=== PATIENT | female | born 1955 | race Caucasian/White ===

== ENCOUNTER 2017-03-02 21:41 | Inpatient (IN) | payer OTHER ==
[~2017-03-02] VITALS: Ht 165.1 cm; Wt 72.3 kg
[~2017-03-02 21:41] MED LIST: ATOR40TA68 PO; FAMO10TA84 PO; OLME20TA20 PO
[2017-03-02] MEDS ORDERED: SOD CHLORIDE 0.9% 1,000 ML IV STA (22:10)
[2017-03-02] MEDS ORDERED: ASPIRIN 325 MG TAB PO STA (22:10)
[2017-03-02 22:36] LABS: BASOPHIL # 0.1 10^3/ul (0.0-0.1); BASOPHILS % 0.4 % (0.0-2.0); HEMATOCRIT 44.9 % (37.0-47.0); HEMOGLOBIN 14.7 g/dl (12.0-16.0); LYMPHOCYTES # 3.2 10^3/ul (0.8-2.9); LYMPHOCYTES % 16.8 % (15.0-51.0); MEAN CORPUSCULAR HEMOGLOBIN 29.2 pg (29.0-33.0); MEAN CORPUSCULAR HGB CONC 32.7 g/dl (32.0-37.0); MEAN CORPUSCULAR VOLUME 89.3 fl (82.0-101.0); MONOCYTE # 1.1 10^3/ul (0.3-0.9); MONOCYTES % 5.8 % (0.0-11.0); NEUTROPHIL # 14.5 10^3/ul (1.6-7.5); NEUTROPHILS % 76.5 % (39.0-77.0); RED BLOOD COUNT 5.03 10^6/ul (4.20-5.40); RED CELL DISTRIBUTION WIDTH 12.7 % (11.5-14.5); WHITE BLOOD COUNT 18.9 10^3/ul (4.8-10.8)
[2017-03-02 22:47] LABS: BARBITURATES Negative (NEGATIVE); BENZODIAZEPINES Negative (NEGATIVE); CANNABINOIDS Negative (NEGATIVE); COCAINE Negative (NEGATIVE); OPIATES Negative (NEGATIVE)
--- NOTE | 2017-03-02 22:47 | ERA ---
ER Documentation Chief Complaint Date/Time DATE: 03/02/17 TIME: 22:45 Chief Complaint COFFEE GROUND VOMITING; ALOC HPI This is a 61-year-old female who was last seen normal a few hours ago. Apparently the patient does not recall any events of today or yesterday. The daughter is here of the patient's best friend who is on scene. Called and spoke with this woman. She states that she was with the patient all afternoon and they were having a normal day. 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 She says she did not eat much for lunch but then they both had a bowl of dark cherries together. Soon after this the patient states she did not feel well and went to the bathroom and vomited. At that point the patient seemed to be confused and did not really recognize her. She stated that the patient did not recall going to work this morning and did not recall the events of yesterday either. The patient is denying any headache no slurred speech visual change no focal weakness or numbness. ROS All systems reviewed and are negative except as per history of present illness. Medications Home Meds Reported Medications Famotidine* (Famotidine*) 10 Mg Tablet, 10 MG PO DAILY, #30 TAB 05/08/16 Atorvastatin* (Atorvastatin*) 40 Mg Tablet, 10 MG PO QHS, #30 TAB 05/08/16 Olmesartan Medoxomil (Benicar) 20 Mg Tablet, 20 MG PO DAILY, #30 TAB 05/08/16 Allergies Allergies: Coded Allergies: No Known Drug Allergies (Verified Allergy, Unknown, 05/08/16) PMhx/Soc History of Surgery: Yes (HYSTERECTOMY, OOPHORECTOMY X2, TONSILLECTOMY) Anesthesia Reaction: No Hx Neurological Disorder: No Hx Respiratory Disorders: No Hx Cardiac Disorders: Yes (HTN) Hx Psychiatric Problems: No Hx Miscellaneous Medical Probl: Yes (PANCREATIC STONE PER PT. ) Hx Alcohol Use: No Hx Substance Use: No Hx Tobacco Use: No Smoking Status: Never smoker FmHx Family History: No coronary disease Physical Exam Vitals Vital Signs Date Time Temp Pulse Resp B/P Pulse Ox O2 Delivery O2 Flow Rate FiO2 03/02/17 21:58 84 18 109/62 100 Room Air 03/02/17 21:49 98.7 94 19 123/58 100 Physical Exam Const: Well-developed, well-nourished Head: Atraumatic, normocephalic Eyes: Normal Conjunctiva, PERRLA, EOMI, normal sclera, no nystagmus ENT: Normal External Ears, Nose and Mouth, moist mucus membranes. Neck: Full range of motion. No meningismus, no lymphadenopathy. Resp: Clear to auscultation bilaterally, no wheezing, rhonchi, rales Cardio: Regular rate and rhythm, no murmurs, S1 S2 present Abd: Soft, non tender x 4, non distended. Normal bowel sounds, no guarding or rebound, no pulsitile abdominal masses or bruits Skin: No petechiae or rashes, no ecchymosis , no maculopapular rash Back: No midline or flank tenderness Ext: No cyanosis, or edema, FROM x 4, normal inspection, neurovascularly intact x 4 Neur: Awake and alert, STR 5/5 x 4, sensation intact x 4, no focal findings, cerebellum intact, the patient is amnestic to the past few days events Psych: Normal Mood and Affect Result Diagram: 03/02/17219903/02/172199 Results 24 hrs Laboratory Tests Test 03/02/17 22:00 White Blood Count 18.910^3/ul Red Blood Count 5.0310^6/ul Hemoglobin 14.7g/dl Hematocrit 44.9% Mean Corpuscular Volume 89.3fl Mean Corpuscular Hemoglobin 29.2pg Mean Corpuscular Hemoglobin Concent 32.7g/dl Red Cell Distribution Width 12.7% Platelet Count 55012^3/UL Mean Platelet Volume 9.0fl Neutrophils % 76.5% Lymphocytes % 16.8% Monocytes % 5.8% Eosinophils % 0.0% Basophils % 0.4% Nucleated Red Blood Cells % 0.0/100WBC Neutrophils # 14.510^3/ul Lymphocytes # 3.210^3/ul Monocytes # 1.110^3/ul Eosinophils # 0.010^3/ul Basophils # 0.110^3/ul Nucleated Red Blood Cells # 0.010^3/ul Prothrombin Time 12.1Sec Prothrombin Time Ratio 0.9 INR International Normalized Ratio 0.90 Activated Partial Thromboplast Time 29.4Sec Sodium Level 146mmol/L Potassium Level 4.6mmol/L Chloride Level 99mmol/L Carbon Dioxide Level 30mmol/L Anion Gap 22 Blood Urea Nitrogen 11mg/dl Creatinine 0.71mg/dl Glucose Level 123mg/dl Calcium Level 10.6mg/dl Total Bilirubin 0.4mg/dl Direct Bilirubin 0.00mg/dl Indirect Bilirubin 0.4mg/dl Aspartate Amino Transf (AST/SGOT) 50IU/L Alanine Aminotransferase (ALT/SGPT) 68IU/L Alkaline Phosphatase 109IU/L Troponin I < 0.012ng/ml Total Protein 9.3g/dl Albumin 5.4g/dl Globulin 3.90g/dl Albumin/Globulin Ratio 1.38 Urine Opiates Screen Negative Urine Barbiturates Negative Urine Amphetamines Screen Negative Urine Benzodiazepines Screen Negative Urine Cocaine Screen Negative Urine Cannabinoids Negative Current Medications Medications (Trade) Dose Ordered Sig/Junior Route PRN Reason Start Time Stop Time Status Last Admin Dose Admin Sodium Chloride (NS) 1,000 ml @ 1,000 mls/hr Q1H STAT IV 03/02/17 22:10 03/02/17 23:09 DC 03/02/17 22:32 Aspirin 325 mg 325 mg ONCE STAT PO 03/02/17 22:10 03/02/17 22:11 DC 03/02/17 22:32 Piperacillin Sod/ Tazobactam Sod (Zosyn 3.375gm/ 100 ml (Pmx)) 100 ml @ 200 mls/hr ONCE STAT IVPB 03/02/17 23:22 03/02/17 23:51 Procedures/MDM PROCEDURE: CT brain without contrast CLINICAL INDICATION: Altered mental status. Possible stroke TECHNIQUE: A CT of the brain was performed utilizing axial sections from the skull base through the vertex without contrast. Sagittal and coronal images were also reformatted. The exam CTDIvol = 45.01 mGy and DLP = 720.23 mGy-cm. COMPARISON: None available FINDINGS: No acute intracranial hemorrhage is identified. There is no mass effect or midline shift. No extra-axial fluid collection is seen. The ventricles and sulci are larger in size and configuration for the patient's provided age of 61 years consistent with advanced generalized atrophy. The density of the brain is within normal limits. Graham-white differentiation is preserved with no findings to suggest an acute ischemic infarct. The fourth ventricle is midline and there is no density alteration within the ishan or cerebellum. The osseous structures are unremarkable. The mastoid air cells and visualized paranasal sinuses are clear. RPTAT:HJJR IMPRESSION: Advanced atrophy for the patient's provided age with no evidence of acute intracranial abnormality or findings to explain the patient's provided history. Carl Guthrie Physician Date Time Electronically viewed and signed by Physician Maria D on 03/02/2017 23:14 JR/ CC: HERMAN LUCAS DO PROCEDURE: XR Chest. CLINICAL INDICATION: Chest pain. Altered mental status TECHNIQUE: Portable AP view of the chest was obtained. COMPARISON: None. FINDINGS: The cardiomediastinal silhouette is within normal limits. The lungs are clear. There is no evidence for pleural effusion, pneumothorax or pulmonary vascular congestion. The osseous structures are intact with no evidence for acute abnormality. RPTAT:HJJR IMPRESSION: No evidence for acute intrathoracic pathology. Physician Maria D Date Time Electronically viewed and signed by Physician Maria D on 03/02/2017 23:13 JR/ CC: HERMAN LUCAS DO Patient has elevated white blood count and this is likely due to stress reaction /demargination. The patient is very nontoxic appearing is in no fever no stiff neck no signs of meningitis. Patient has advanced atrophy for age however acute amnesia could be due to an infarct. She is not a TPA candidate due to her symptomatology and unknown onset. We will admit her to panel. Did get blood and urine cultures. Patient had just eaten a bunch of dark cherries and vomited them up that is what is causing the dark vomit in my opinion not coffee-ground emesis She will need further workup including MRI and observation EKG: Rate/Rhythm: Normal sinus rhythm with right axis deviation QRS, ST, QT: NORMAL MT, QRS, QT] Impression: NORMAL EKG Departure Diagnosis: Primary Impression: Amnesia Additional Impression: Altered level of consciousness Condition: Stable HERMAN LUCAS DO Mar 02, 2017 22:47
[2017-03-02 22:48] LABS: INR 0.9; PARTIAL THROMBOPLASTIN TIME 29.4 Sec (25.0-35.0); PROTIME 12.1 Sec (12.2-14.2); PT RATIO 0.9
[2017-03-02 22:50] LABS: ALANINE AMINOTRANSFERASE 68 IU/L (13-69); ALBUMIN 5.4 g/dl (3.3-4.9); ALBUMIN/GLOBULIN RATIO 1.38; ALKALINE PHOSPHATASE 109 IU/L (42-121); ANION GAP 22 (8-16); ASPARTATE AMINO TRANSFERASE 50 IU/L (15-46); BILIRUBIN,INDIRECT 0.4 mg/dl (0-1.1); BILIRUBIN,TOTAL 0.4 mg/dl (0.2-1.3); BLOOD UREA NITROGEN 11 mg/dl (7-20); CALCIUM 10.6 mg/dl (8.4-10.2); CARBON DIOXIDE 30 mmol/L (21-31); CHLORIDE 99 mmol/L (97-110); CREATININE 0.71 mg/dl (0.44-1.00); GLUCOSE 123 mg/dl (70-220); POTASSIUM 4.6 mmol/L (3.5-5.1); SODIUM 146 mmol/L (135-144); TOTAL PROTEIN 9.3 g/dl (6.1-8.1)
[2017-03-02 22:55] LABS: PLATELET COUNT 280 10^3/UL (140-415); POSITIVE DIFF @See below
[2017-03-02 23:01] LABS: TROPONIN-I < 0.012 ng/ml (0.00-0.12)
--- NOTE | 2017-03-02 23:13 | RADRPT ---
PROCEDURE: XR Chest. CLINICAL INDICATION: Chest pain. Altered mental status TECHNIQUE: Portable AP view of the chest was obtained. COMPARISON: None. FINDINGS: The cardiomediastinal silhouette is within normal limits. The lungs are clear. There is no evidenc e for pleural effusion, pneumothorax or pulmonary vascular congestion. The osseous structures are i ntact with no evidence for acute abnormality. RPTAT:HJJR IMPRESSION: No evidence for acute intrathoracic pathology. Physician Maria D Date Time Electronically viewed and signed by Physician Maria D on 03/02/2017 23:13 JR/
--- NOTE | 2017-03-02 23:15 | RADRPT ---
PROCEDURE: CT brain without contrast CLINICAL INDICATION: Altered mental status. Possible stroke TECHNIQUE: A CT of the brain was performed utilizing axial sections from the skull base through th e vertex without contrast. Sagittal and coronal images were also reformatted. The exam CTDIvol = 45. 01 mGy and DLP = 720.23 mGy-cm. COMPARISON: None available FINDINGS: No acute intracranial hemorrhage is identified. There is no mass effect or midline shift. No extra -axial fluid collection is seen. The ventricles and sulci are larger in size and configuration for the patient's provided age of 61 years consistent with advanced generalized atrophy. The density of the brain is within normal limits. Graham-white differentiation is preserved with no findings to sug gest an acute ischemic infarct. The fourth ventricle is midline and there is no density alteration within the ishan or cerebellum. The osseous structures are unremarkable. The mastoid air cells and visualized paranasal sinuses are clear. RPTAT:HJJR IMPRESSION: Advanced atrophy for the patient's provided age with no evidence of acute intracranial abnormality o r findings to explain the patient's provided history. Physician Maria D Date Time Electronically viewed and signed by Physician Maria D on 03/02/2017 23:14 /
[2017-03-02] MEDS ORDERED: PIPER-TAZO 3.375 GM IV (PMX) 100 ML IVPB STA (23:22)
[2017-03-02] MEDS ORDERED: SOD CHLORIDE 0.9% 1,000 ML IV SCH (23:39)
[2017-03-03] VITALS (12 sets, daily range): BP systolic 106–114; BP diastolic 52–67; PULSE 55–112; RESP 16–18; Ht 165.1 cm; Wt 72.3 kg
[2017-03-03] MEDS ORDERED: ACETAMINOPHEN 325 MG TAB PO PRN
[2017-03-03] MEDS ORDERED: ONDANSETRON 4 MG INJ IV PRN ×2 (01:30)
[2017-03-03] MEDS: ENOXAPARIN 40 MG/0.4 ML SYG SC SCH ×3 (01:55→09:51)
[2017-03-03] MEDS: CEFTRIAXONE 1 GM/50 ML (PMX) 50 ML IVPB SCH (06:10)
--- NOTE | 2017-03-03 07:49 | HP ---
Date/Time of Note Date/Time of Note DATE: 03/03/17 TIME: 07:40 Assessment/Plan Lines/Catheters IV Catheter Type (from Rust): Saline Lock Assessment/Plan Assessment/Plan 1. Amnesia: Unknown etiology. -Head CT shows advanced atrophy for the patient's age otherwise no other acute findings -We will obtain MRI of the brain in place a neurology consult. 2. Leukocytosis: Likely stress-induced -Urinalysis negative for UTI and a chest x-ray also negative for pneumonia -We will follow up on the urine culture and blood culture results 3. History of hypertension: Blood pressure within goal -Continue home medication 4. History of dyslipidemia -Continue statin HPI/ROS Admit Date/Time Admit Date/Time Mar 02, 2017 at 23:40 Hx of Present Illness This is a 61-year-old female with a history of hypertension and dyslipidemia who presented to the emergency department for evaluation of memory loss. Patient stated that 2 days ago, she went to a movie with her mom where she ate popcorn. She said that popcorn made her bloated and she had a generalized feeling of unwell. 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 Later on in the afternoon she ate some cherries and that this also caused her some discomfort. Shortly after she vomited and after that patient does not remember what happened until she found herself in the ER. She denied similar symptoms in the past. She also denied any focal neurological deficits, facial droop blurry vision or seizure-like activity. 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 Patient still does not remember how she got to the hospital but other than that she remembers everything and does not have any other memory deficits. Patient denied recent head trauma. She also denied alcohol or illicit drug use. . PMH/Family/Social Social History Smoking Status: Never smoker Exam/Review of Systems Vital Signs Vitals Vital Signs Date Time Temp Pulse Resp B/P Pulse Ox O2 Delivery O2 Flow Rate FiO2 03/03/17 04:18 65 03/03/17 04:07 98.6 18 114/57 96 03/03/17 01:03 Room Air Intake and Output 03/02/17 03/02/17 03/03/17 14:59 22:59 06:59 Intake Total 300 ml Balance 300 ml Labs Result Diagram: 03/02/17219903/02/172199 Medications Medications Current Medications Aspirin (Aspirin) 81 mg DAILY PO ; Start 03/03/17 at 09:00 Atorvastatin Calcium (Lipitor) 40 mg HS PO ; Start 03/03/17 at 21:00 Ondansetron HCl (Zofran Inj) 4 mg Q6H PRN IV NAUSEA AND/OR VOMITING; Start at 01:30 Enoxaparin Sodium 40 mg 40 mg DAILY SC Last administered on 03/03/17 01:55; Admin Dose 40 MG; Start 03/03/17 at 01:30 Ceftriaxone Sodium (Rocephin) 50 ml @ 100 mls/hr Q24H IVPB Last administered on 03/03/17 06:10; Admin Dose 100 MLS/HR; Start 03/03/17 at 04:30 KAREN KELLER MD Mar 03, 2017 07:49
[2017-03-03 08:13] LABS: BASOPHILS % 0.3 % (0.0-2.0); HEMATOCRIT 38.8 % (37.0-47.0); HEMOGLOBIN 12.7 g/dl (12.0-16.0); LYMPHOCYTES # 2.2 10^3/ul (0.8-2.9); LYMPHOCYTES % 18.9 % (15.0-51.0); MEAN CORPUSCULAR HEMOGLOBIN 29.4 pg (29.0-33.0); MEAN CORPUSCULAR HGB CONC 32.7 g/dl (32.0-37.0); MEAN CORPUSCULAR VOLUME 89.8 fl (82.0-101.0); MONOCYTE # 0.8 10^3/ul (0.3-0.9); NEUTROPHIL # 8.6 10^3/ul (1.6-7.5); NEUTROPHILS % 73.5 % (39.0-77.0); RED BLOOD COUNT 4.32 10^6/ul (4.20-5.40); RED CELL DISTRIBUTION WIDTH 12.8 % (11.5-14.5); WHITE BLOOD COUNT 11.7 10^3/ul (4.8-10.8)
[2017-03-03 08:15] LABS: POSITIVE DIFF @See below
[2017-03-03 08:31] LABS: CALCIUM 9.6 mg/dl (8.4-10.2); CHOL/HDL RATIO 3.3 RATIO; CREATININE 0.61 mg/dl (0.44-1.00); PHOSPHORUS 3.7 mg/dl (2.5-4.9); POTASSIUM 4.5 mmol/L (3.5-5.1)
[2017-03-03 08:42] LABS: PLATELET COUNT 152 10^3/UL (140-415)
[2017-03-03] MEDS: ASPIRIN 81 MG TAB PO SCH (09:56)
[2017-03-03 12:19] LABS: ADD UMIC YES; UR ASCORBIC ACID 40 mg/dL (NEGATIVE); UR BACTERIA FEW /HPF (NONE SEEN); UR BILIRUBIN (Dip) NEGATIVE (NEGATIVE); UR BLOOD (Dip) NEGATIVE (NEGATIVE); UR CLARITY TURBID (CLEAR); UR COLOR AMBER (YELLOW); UR GLUCOSE (Dip) NEGATIVE (NEGATIVE); UR KETONES (Dip) TRACE mg/dL (NEGATIVE); UR LEUKOCYTE ESTERASE (Dip) TRACE Leu/ul (NEGATIVE); UR MUCUS MANY /HPF (NONE SEEN); UR NITRITE (Dip) NEGATIVE (NEGATIVE); UR RBC 8 /HPF (0-5); UR TOTAL PROTEIN (Dip) 2+ mg/dl (NEGATIVE); UR UROBILINOGEN (Dip) NEGATIVE (NEGATIVE)
[2017-03-03] MEDS: LORAZEPAM 1 MG TAB PO SCH (15:27)
--- NOTE | 2017-03-03 17:25 | RADRPT ---
PROCEDURE: MRI Brain without contrast. CLINICAL INDICATION: Acute amnesia TECHNIQUE: Multiplanar MRI of the brain without contrast was performed on a 3.0 T scanner with the following sequences obtained: T1-weighted, T2-weighted/FLAIR, diffusion weighted (with ADC map), GR E. COMPARISON: CT brain 03/02/2017 FINDINGS: No acute/recent ischemic infarction or intracranial hemorrhage / blood degradation products are iden tified. No extra-axial fluid collection is seen. There is no mass effect. No midline shift is identified. The ventricles and sulci are mildly enlarged, compatible with volume loss. A couple of minimal areas of increased T2-weighted FLAIR signal intensity are visualized in the deep white matter, which are nonspecific, but may reflect reflecting chronic small vessel ischemic guadalupe e. Flow voids are identified in the proximal intracranial arteries and dural sinuses suggesting patency . A focal signal void is identified adjacent to the left internal carotid artery medially at the pa raclinoid region abutting the left anterolateral margin of the sella, measuring approximately 6 mm. Partly empty sella is noted. The mastoid air cells and paranasal sinuses are grossly clear. IMPRESSION: 1. No evidence of acute intracranial pathology. 2. Mild volume loss, with minimal nonspecific white matter changes possibly reflecting chronic smal l vessel ischemic changes. 3. Approximately 6 mm signal void adjacent to the paraclinoid left ICA. Aneurysm is not excluded. Further evaluation with MRA or CTA of the brain is recommended. RPTAT: EE .Bhaskar Pate MD, MD Date Time Electronically viewed and signed by .Bhaskar Pate MD, MD on 03/03/2017 17:25 .O/
--- NOTE | 2017-03-03 18:27 | CONS ---
Date/Time of Note Date/Time of Note DATE: 03/03/17 TIME: 18:23 Assessment/Plan Assessment/Plan Chief Complaint/Hosp Course 61 yo female with transient amnesia now back to baseline, mild leukocytosis. CTH showed atrophy advanced for age, pending MRI Brain for further eval. check TSH, B12, infectious workup MRI Brain w/o contrast. will follow Problems: Consultation Date/Type/Reason Admit Date/Time Mar 02, 2017 at 23:40 Date of Consultation: Mar 03, 2017 Type of Consultation: Neurology Reason for Consultation transient amnesia Referring Provider: VERONICA TAYLOR of Present Illness 61 year old female with a history of HTN, HLD presented to the ED for evaluation of memory loss. Two days ago she went to watch a movie with her mother, she recalls eating popcorn and enjoying the movie [place], but reports feeling unwell and bloated from the popcorn. The following day she had some discomfort and vomiting. She was unable to recall events from the day apparently she gave her dog a shower cannot recall that. She does admit to a similar episode in the past in [place] after food poisoning. She denies any memory issues. CTH showed atrophy advanced for age. Social History Smoking Status: Never smoker Exam/Review of Systems Vital Signs Vitals Vital Signs Date Time Temp Pulse Resp B/P Pulse Ox O2 Delivery O2 Flow Rate FiO2 03/03/17 16:05 66 03/03/17 11:45 98.4 18 114/64 98 03/03/17 01:03 Room Air Intake and Output 03/02/17 03/02/17 03/03/17 15:00 23:00 07:00 Intake Total 300 ml Balance 300 ml Exam Constitutional: alert, oriented, well developed Psych: no complaints Neurological: ALLIGATOR HUNTER II-XII intact, DTR's symmetric, nl mental status, nl speech, nl strength Results Result Diagram: 03/03/17 0727 03/03/17 0722 Results 24 hrs Laboratory Tests Test 03/02/17 22:00 03/03/17 07:22 03/03/17 07:27 White Blood Count 18.9 H 11.7 #H Red Blood Count 5.03 4.32 Hemoglobin 14.7 12.7 Hematocrit 44.9 38.8 Mean Corpuscular Volume 89.3 89.8 Mean Corpuscular Hemoglobin 29.2 29.4 Mean Corpuscular Hemoglobin Concent 32.7 32.7 Red Cell Distribution Width 12.7 12.8 Platelet Count 280 152 # Mean Platelet Volume 9.0 11.0 #H Neutrophils % 76.5 73.5 Lymphocytes % 16.8 18.9 Monocytes % 5.8 7.0 Eosinophils % 0.0 0.0 Basophils % 0.4 0.3 Nucleated Red Blood Cells % 0.0 0.0 Neutrophils # 14.5 H 8.6 H Lymphocytes # 3.2 H 2.2 Monocytes # 1.1 H 0.8 Eosinophils # 0.0 0.0 Basophils # 0.1 0.0 Nucleated Red Blood Cells # 0.0 0.0 Prothrombin Time 12.1 L Prothrombin Time Ratio 0.9 INR International Normalized Ratio 0.90 Activated Partial Thromboplast Time 29.4 Urine Color GARRET Urine Clarity TURBID A Urine pH 5.0 Urine Specific Jameson 1.030 Urine Ketones TRACE A Urine Nitrite NEGATIVE Urine Bilirubin NEGATIVE Urine Urobilinogen NEGATIVE Urine Leukocyte Esterase TRACE A Urine Microscopic RBC 8 H Urine Microscopic WBC 3 Urine Calcium Oxalate Crystals FEW A Urine Bacteria FEW A Urine Mucus MANY A Urine Hemoglobin NEGATIVE Urine Glucose NEGATIVE Urine Total Protein 2+ H Sodium Level 146 H 145 H Potassium Level 4.6 4.5 Chloride Level 99 103 Carbon Dioxide Level 30 29 Anion Gap 22 H 18 H Blood Urea Nitrogen 11 10 Creatinine 0.71 0.61 Glucose Level 123 102 Calcium Level 10.6 H 9.6 Total Bilirubin 0.4 Direct Bilirubin 0.00 Indirect Bilirubin 0.4 Aspartate Amino Transf (AST/SGOT) 50 H Alanine Aminotransferase (ALT/SGPT) 68 Alkaline Phosphatase 109 Troponin I < 0.012 < 0.012 Total Protein 9.3 H Albumin 5.4 H Globulin 3.90 H Albumin/Globulin Ratio 1.38 Urine Opiates Screen Negative Urine Barbiturates Negative Urine Amphetamines Screen Negative Urine Benzodiazepines Screen Negative Urine Cocaine Screen Negative Urine Cannabinoids Negative Phosphorus Level 3.7 Magnesium Level 2.0 Triglycerides Level 91 Cholesterol Level 177 LDL Cholesterol, Calculated 106 HDL Cholesterol 53 Cholesterol/HDL Ratio 3.3 Hemoglobin A1c 6.1 H Medications Medications Current Medications Aspirin (Aspirin) 81 mg DAILY PO Last administered on 03/03/17t 09:56; Admin Dose 81 MG; Start 03/03/17 at 09:00 Atorvastatin Calcium (Lipitor) 40 mg HS PO ; Start 03/03/17 at 21:00 Ondansetron HCl (Zofran Inj) 4 mg Q6H PRN IV NAUSEA AND/OR VOMITING; Start at 01:30 Enoxaparin Sodium 40 mg 40 mg DAILY SC Last administered on 03/03/17 01:55; Admin Dose 40 MG; Start 03/03/17 at 01:30 Ceftriaxone Sodium (Rocephin) 50 ml @ 100 mls/hr Q24H IVPB Last administered on 03/03/17 06:10; Admin Dose 100 MLS/HR; Start 03/03/17 at 04:30 Lorazepam (Ativan) 1 mg ONCE PO Last administered on 03/03/17 15:27; Admin Dose 1 MG; Start 03/03/17 at 15:30; Stop 03/04/17 at 16:00 DONTE LYNCH MD Mar 03, 2017 18:27
[2017-03-03] MEDS: ATORVASTATIN 40 MG TAB PO SCH (20:53)
[2017-03-04] VITALS (12 sets, daily range): BP systolic 100–130; BP diastolic 52–66; PULSE 56–67; RESP 16–20
[2017-03-04] MEDS: CEFTRIAXONE 1 GM/50 ML (PMX) 50 ML IVPB SCH (04:00)
[2017-03-04 07:55] LABS: CALCIUM 9.5 mg/dl (8.4-10.2); CREATININE 0.68 mg/dl (0.44-1.00); POTASSIUM 3.9 mmol/L (3.5-5.1)
[2017-03-04 08:21] LABS: THYROID STIMULATING HORMONE 2.14 MIU/L (0.465-4.680)
[2017-03-04] MEDS: ASPIRIN 81 MG TAB PO SCH (08:28)
[2017-03-04] MEDS: LOSARTAN 25 MG TAB PO SCH (08:28)
[2017-03-04] MEDS: ENOXAPARIN 40 MG/0.4 ML SYG SC SCH (08:30)
[2017-03-04 10:17] LABS: BASOPHILS % 0.5 % (0.0-2.0); HEMATOCRIT 38.4 % (37.0-47.0); HEMOGLOBIN 12.6 g/dl (12.0-16.0); LYMPHOCYTES # 1.9 10^3/ul (0.8-2.9); LYMPHOCYTES % 24.6 % (15.0-51.0); MEAN CORPUSCULAR HEMOGLOBIN 29.5 pg (29.0-33.0); MEAN CORPUSCULAR HGB CONC 32.8 g/dl (32.0-37.0); MEAN CORPUSCULAR VOLUME 89.9 fl (82.0-101.0); MEAN PLATELET VOLUME 12.1 fl (7.4-10.4); MONOCYTE # 0.6 10^3/ul (0.3-0.9); MONOCYTES % 7.7 % (0.0-11.0); NEUTROPHIL # 5.2 10^3/ul (1.6-7.5); NEUTROPHILS % 66.9 % (39.0-77.0); RED BLOOD COUNT 4.27 10^6/ul (4.20-5.40); RED CELL DISTRIBUTION WIDTH 12.8 % (11.5-14.5); WHITE BLOOD COUNT 7.8 10^3/ul (4.8-10.8)
[2017-03-04 10:19] LABS: PLATELET COUNT 192 10^3/UL (140-415); POSITIVE DIFF @See below
--- NOTE | 2017-03-04 12:19 | CONS ---
Date/Time of Note Date/Time of Note DATE: 03/04/17 TIME: 12:15 Consult Date/Type/Reason Admit Date/Time Mar 02, 2017 at 23:40 Initial Consult Date 03/03/17 Type of Consultation: Neurology Reason for Consultation transient amnesia Ordering Provider: VERONICA TAYLOR Subjective no overnight issues patient is comfortable with no complaints MRI showed a 6 mm signal void adjacent to the paraclinoid left ICA. Aneurysm is not excluded. Objective Vital Signs Date Time Temp Pulse Resp B/P Pulse Ox O2 Delivery O2 Flow Rate FiO2 03/04/17 11:43 98.3 61 18 103/57 100 03/03/17 01:03 Room Air Intake and Output 03/03/17 03/03/17 03/04/17 15:00 23:00 07:00 Intake Total 530 ml Balance 530 ml Exam Constitutional: alert, oriented, well developed Psych: no complaints Neurological: CRANE HOIST OR LIFT OPERATOR II-XII intact, DTR's symmetric, nl mental status, nl speech, nl strength Results/Medications Result Diagram: 03/04/17 0942 03/04/17 0711 Results 24 hrs Laboratory Tests Test 03/04/17 07:11 03/04/17 09:42 Sodium Level 143 Potassium Level 3.9 Chloride Level 105 Carbon Dioxide Level 24 Anion Gap 18 H Blood Urea Nitrogen 11 Creatinine 0.68 Glucose Level 90 Calcium Level 9.5 Vitamin B12 Level 805 Thyroid Stimulating Hormone (TSH) 2.140 White Blood Count 7.8 # Red Blood Count 4.27 Hemoglobin 12.6 Hematocrit 38.4 Mean Corpuscular Volume 89.9 Mean Corpuscular Hemoglobin 29.5 Mean Corpuscular Hemoglobin Concent 32.8 Red Cell Distribution Width 12.8 Platelet Count 192 # Mean Platelet Volume 12.1 H Neutrophils % 66.9 Lymphocytes % 24.6 Monocytes % 7.7 Eosinophils % 0.0 Basophils % 0.5 Nucleated Red Blood Cells % 0.0 Neutrophils # 5.2 Lymphocytes # 1.9 Monocytes # 0.6 Eosinophils # 0.0 Basophils # 0.0 Nucleated Red Blood Cells # 0.0 Medications Current Medications Aspirin (Aspirin) 81 mg DAILY PO Last administered on 03/04/17 08:28; Admin Dose 81 MG; Start 03/03/17 at 09:00 Atorvastatin Calcium (Lipitor) 40 mg HS PO Last administered on 7/23/17at 20:53 ; Admin Dose 40 MG; Start 03/03/17 at 21:00 Ondansetron HCl (Zofran Inj) 4 mg Q6H PRN IV NAUSEA AND/OR VOMITING; Start at 01:30 Enoxaparin Sodium 40 mg 40 mg DAILY SC Last administered on 03/04/17 08:30; Admin Dose 40 MG; Start 03/03/17 at 01:30 Ceftriaxone Sodium (Rocephin) 50 ml @ 100 mls/hr Q24H IVPB Last administered on 03/04/17 04:00; Admin Dose 100 MLS/HR; Start 03/03/17 at 04:30 Lorazepam (Ativan) 1 mg ONCE PO Last administered on 03/03/17 15:27; Admin Dose 1 MG; Start 03/03/17 at 15:30; Stop 03/04/17 at 16:00 Losartan Potassium (Cozaar) 25 mg DAILY PO Last administered on 03/04/17 08:28 ; Admin Dose 25 MG; Start 03/04/17 at 09:00 Assessment/Plan Chief Complaint/Hosp Course 61 yo female with transient amnesia now back to baseline, mild leukocytosis. MRI showed signal void paraclinoid left ICA possible 6 mm aneurysm suggested further imaging. Recommendations: unclear episode of transient amnesia, possibly underlying cognitive issues may be followed up as outpatient for further cognitive testing will recommend CT Angiogram Head with contrast to further evaluate aneurysm, MRI studies often overestimate size of aneurysm maintain normotensive blood pressure she may follow up with neurosurgery to further evaluate and obtain serial imaging in the future for potential intervention at this time she is asymptomatic Problems: DONTE LYNCH MD Mar 04, 2017 12:19
--- NOTE | 2017-03-04 15:18 | RADRPT ---
Echocardiogram Report Patient Name: BRANDY WALTERS Gender: Female Date: 1955 Study Date: 04-Mar-2017 Occ Therapy Asst: Matt Anderson [facility] Location: 5555 Ref. Physician: KAREN KELLER Quality: Good Procedures: Transthoracic echocardiogram with complete 2D, M-Mode, and doppler examination. Indications: Transient Ischemic Attack. 2D/M Mode Doppler Measurement Value Normal Ranges Measurement Value Normal Ranges LVIDs 2D 2.6 2.1 - 4.1 cm AV Peak Ketan 1.3 m/sec LVPWd 2D 1.0 0.6 - 1.1 cm AV Peak PG 7.1 mmHg IVSd 2D 1.1 0.6 - 1.1 cm LVOT Peak Ketan 0.9 m/sec AoR Diam 2D 2.1 2.0 - 3.7 cm MV E Peak Ketan 0.8 m/sec ESV 2D 23.7 cm3 MV A Peak Ketan 0.9 m/sec LA Dimen 2D 3.1 2.3 - 4.0 cm MV E/A 0.9 MV Decel Time 312 msec MV Decel [place]ac 2 MV E/A 0.9 TR Peak Ketan 2.2 m/sec TR Peak PG 18.9 mmHg RVSP 22.0 mmHg Findings Left Ventricle: Normal left ventricular systolic function. Normal left ventricular cavity size. Mild concentric left ventricular hypertrophy. Ejection fraction is visually estimated at 60 %. Right Ventricle: Normal right ventricular size. Normal right ventricular systolic function. Left Atrium: The left atrium is normal in size. Right Atrium: The right atrium is normal in size. Mitral Valve: Mitral valve leaflets appear mildly thickened. Mild mitral annular calcification. Trace mitral regurgitation. Aortic Valve: Normal appearance of the aortic valve. No significant aortic stenosis or insufficiency. Tricuspid Valve: Normal appearance of the tricuspid valve. Estimated peak PA systolic pressure 22 mmHg. There is trace tricuspid regurgitation. Pulmonic Valve: Normal pulmonic valve appearance. Pericardium: Normal pericardium with no significant pericardial effusion. Aorta: Normal aortic root. IVC: Normal size and normal respiratory collapse consistent with normal right atrial pressure. Conclusions Normal left ventricular systolic function. Normal left ventricular cavity size. Mild concentric left ventricular hypertrophy. Ejection fraction is visually estimated at 60 %. Mitral valve leaflets appear mildly thickened. Mild mitral annular calcification. Trace mitral regurgitation. Normal appearance of the tricuspid valve. Estimated peak PA systolic pressure 22 mmHg. There is trace tricuspid regurgitation. Electronically Signed By: Cooper Carrion 04-Mar-2017 15:16:57 -0700 Patient Name: BRANDY WALTERS Study Date: 04-Mar-2017 [id number]
--- NOTE | 2017-03-04 17:25 | PN ---
Date/Time of Note Date/Time of Note DATE: 03/04/17 TIME: 17:24 Assessment/Plan VTE Prophylaxis VTE Prophylaxis Intervention: LMWH Lines/Catheters [facility] Saline Lock Urinary Cath still in place: No Assessment/Plan Chief Complaint/Hosp Course 1. Transient amnesia. Etiology unclear. Brain CT scan showing advanced atrophy for the patient's provided age with no evidence of acute intracranial abnormality. Brain MRI showing no evidence of acute intracranial pathology but approximately 6 mm signal void adjacent to the paraclinoid left ICA. CT angiogram of the brain ordered to evaluate for any underlying aneurysm. Being followed by neurology. 2. Essential hypertension. Continue antihypertensives. 3. Leukocytosis. Probably reactive. Pancultures negative. The patient remains afebrile. We will discontinue the patient's antibiotics. 4. Prediabetes. Hemoglobin A1c 6.1. Low sugar diet advised. 5. Fluids, electrolytes, and nutrition. Low-cholesterol diet. 6. DVT prophylaxis with subcutaneous Lovenox. 7. Gastrointestinal prophylaxis. Histamine 2 receptor blockers. 8. Plan. Continue current management. Await CT angiogram of the brain. Case discussed with Dr. Newell. Problems: Subjective 24 Hr Interval Summary Free Text/Dictation Denies any complaints. Exam/Review of Systems Vital Signs Vitals Vital Signs Date Time Temp Pulse Resp B/P Pulse Ox O2 Delivery O2 Flow Rate FiO2 03/04/17 16:43 60 03/04/17 15:36 98.5 18 108/58 100 03/03/17 01:03 Room Air Intake and Output 03/03/17 03/03/17 03/04/17 15:00 23:00 07:00 Intake Total 530 ml Balance 530 ml Exam General: Adequately build 61 year-old female lying in bed in no apparent distress. HEENT: Normocephalic, atraumatic. Eyes: Anicteric sclerae, conjunctivae clear. ENT: Nasal septum midline, oral mucosa moist. Neck supple, no JVD noticed. Respiratory: Bilaterally clear breath sounds. No use of accessory muscles of respiration. No adventitious breath sounds. Cardiovascular: S1, S2 heard. No murmurs or gallops. Abdomen: Soft, nontender, and nondistended. Bowel sounds positive in all 4 quadrants. Genitourinary: Deferred. Extremities: No cyanosis, no clubbing, no edema. Peripheral pulses palpable. Neurologic: Cranial nerves II through XII grossly intact. The patient is awake, alert, and oriented. Skin: Normal skin turgor. No skin rashes. Results Result Diagram: 03/04/17 0942 03/04/17 0711 Results 24 hrs Laboratory Tests Test 03/04/17 07:11 03/04/17 09:42 Sodium Level 143 Potassium Level 3.9 Chloride Level 105 Carbon Dioxide Level 24 Anion Gap 18 H Blood Urea Nitrogen 11 Creatinine 0.68 Glucose Level 90 Calcium Level 9.5 Vitamin B12 Level 805 Thyroid Stimulating Hormone (TSH) 2.140 White Blood Count 7.8 # Red Blood Count 4.27 Hemoglobin 12.6 Hematocrit 38.4 Mean Corpuscular Volume 89.9 Mean Corpuscular Hemoglobin 29.5 Mean Corpuscular Hemoglobin Concent 32.8 Red Cell Distribution Width 12.8 Platelet Count 192 # Mean Platelet Volume 12.1 H Neutrophils % 66.9 Lymphocytes % 24.6 Monocytes % 7.7 Eosinophils % 0.0 Basophils % 0.5 Nucleated Red Blood Cells % 0.0 Neutrophils # 5.2 Lymphocytes # 1.9 Monocytes # 0.6 Eosinophils # 0.0 Basophils # 0.0 Nucleated Red Blood Cells # 0.0 Medications Medications Current Medications Aspirin (Aspirin) 81 mg DAILY PO Last administered on 03/04/17 08:28; Admin Dose 81 MG; Start 03/03/17 at 09:00 Atorvastatin Calcium (Lipitor) 40 mg HS PO Last administered on 03/03/17 20:53 ; Admin Dose 40 MG; Start 03/03/17 at 21:00 Ondansetron HCl (Zofran Inj) 4 mg Q6H PRN IV NAUSEA AND/OR VOMITING; Start at 01:30 Enoxaparin Sodium 40 mg 40 mg DAILY SC Last administered on 03/04/17 08:30; Admin Dose 40 MG; Start 03/03/17 at 01:30 Ceftriaxone Sodium (Rocephin) 50 ml @ 100 mls/hr Q24H IVPB Last administered on 03/04/17 04:00; Admin Dose 100 MLS/HR; Start 03/03/17 at 04:30 Losartan Potassium (Cozaar) 25 mg DAILY PO Last administered on 03/04/17 08:28 ; Admin Dose 25 MG; Start 03/04/17 at 09:00 PATRICK WILHELM NP Mar 04, 2017 17:25
[2017-03-04] MEDS: LORAZEPAM 1 MG TAB PO SCH (17:44)
[2017-03-04] MEDS ORDERED: IODIXANOL LOCM 100 ML BTL ONE (17:53)
[2017-03-04] MEDS ORDERED: SOD CHLORIDE 0.9% 100 ML ONE (17:53)
[2017-03-04] MEDS ORDERED: SOD CHLORIDE 0.9% 500 ML IV ONE (20:30)
[2017-03-05] VITALS (11 sets, daily range): BP systolic 102–134; BP diastolic 54–63; PULSE 51–79; RESP 17–20
[2017-03-05] MEDS: FAMOTIDINE 20 MG TAB PO SCH ×3 (01:46→20:32)
[2017-03-05] MEDS: ATORVASTATIN 40 MG TAB PO SCH ×2 (01:46→20:32)
--- NOTE | 2017-03-05 08:29 | RADRPT ---
PROCEDURE: CTA Head. CLINICAL INDICATION: 61-year-old female with suspected left periclinoid internal carotid artery aneu rysm on recent MRI brain dated 03/03/2017. TECHNIQUE: CTA of the head was obtained with 0.63 mm axial images. Sagittal and coronal reformatio ns were provided. The administered radiation dose was CTDI vol = 87.71 mGy, DLP = 608.81 mGy-cm. Im ages were obtained following the intravenous contrast administration of 90 cc Visipaque 320 contrast . One or more of the following dose reduction techniques were used: Automated exposure control, Adj ustment of the mA and/or kV according to patient size, or Use of iterative reconstruction technique. COMPARISON: MRI brain 03/03/2017 FINDINGS: CTA head: Carotid arteries: Patent bilaterally without evidence of stenosis. Anterior cerebral arteries: Patent bilaterally without evidence of stenosis. Middle cerebral arteries: Patent bilaterally without evidence of stenosis. Posterior cerebral arteries: Patent bilaterally without evidence of stenosis. Anterior communicating artery: Present. Posterior communicating arteries: Present bilaterally. Basilar artery: Patent without evidence of stenosis. Vertebral arteries: Patent bilaterally without evidence of stenosis. Vertebral artery dominance: The left vertebral artery is slightly dominant Aneurysm: There is a 7 mm saccular aneurysm arising from the left paraclinoid internal carotid symone ry, just proximal to the origin of the left ophthalmic artery. The aneurysm projects inferiorly, me dially, and posteriorly. Of note, there is thinning and possible mild dehiscence of the posterior s uperior wall of the left sphenoid sinus, adjacent to the aneurysm. A 3 mm inferomedially projecting aneurysm arising from the distal cavernous right internal carotid a rtery is also suggested. Venous sinuses: Patent. The visualized paranasal sinuses and mastoid air cells are clear. No destructive osseous lesion is identified. IMPRESSION: 1. 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 The aneurysm projects in feriorly, medially, and posteriorly. Of note, there is thinning and possible mild dehiscence of the posterior superior wall of the left sphenoid sinus, adjacent to the aneurysm. Recommend intrerventi onal neuroradiology/vascular neurosurgery consultation. 2. Probable 3 mm saccular aneurysm arising from the distal cavernous right internal carotid artery. 3. No significant cerebral arterial stenosis. RPTAT: PP Trent Pina, Physician Date Time Electronically viewed and signed by Trent Pina, Physician on 03/05/2017 08:28 /
[2017-03-05] MEDS: ASPIRIN 81 MG TAB PO SCH (09:53)
[2017-03-05] MEDS: LOSARTAN 25 MG TAB PO SCH (09:54)
[2017-03-05] MEDS: ENOXAPARIN 40 MG/0.4 ML SYG SC SCH (09:55)
--- NOTE | 2017-03-05 11:33 | CONS ---
Date/Time of Note Date/Time of Note DATE: 03/05/17 TIME: 11:31 Consult Date/Type/Reason Admit Date/Time Mar 02, 2017 at 23:40 Initial Consult Date 03/03/17 Type of Consultation: Neurology Reason for Consultation transient amnesia aneurysm Ordering Provider: VERONICA TAYLOR Subjective feels at baseline, no further cognitive complaints CTA completed Objective Vital Signs Date Time Temp Pulse Resp B/P Pulse Ox O2 Delivery O2 Flow Rate FiO2 03/05/17 08:18 79 03/05/17 07:56 98.6 18 112/59 98 03/03/17 01:03 Room Air Intake and Output 03/04/17 03/04/17 03/05/17 15:00 23:00 07:00 Intake Total 1200 ml 900 ml Balance 1200 ml 900 ml Exam Constitutional: alert, oriented, well developed Psych: no complaints Neurological: BACKBREAKER II-XII intact, DTR's symmetric, nl mental status, nl speech, nl strength Results/Medications Result Diagram: 03/04/17 0942 03/04/17 0711 Medications Current Medications Aspirin (Aspirin) 81 mg DAILY PO Last administered on 03/05/17 09:53; Admin Dose 81 MG; Start 03/03/17 at 09:00 Atorvastatin Calcium (Lipitor) 40 mg HS PO Last administered on 03/05/17 01:46 ; Admin Dose 40 MG; Start 03/03/17 at 21:00 Ondansetron HCl (Zofran Inj) 4 mg Q6H PRN IV NAUSEA AND/OR VOMITING; Start at 01:30 Enoxaparin Sodium (Lovenox) 40 mg DAILY SC Last administered on 03/05/17 09:55 ; Admin Dose 40 MG; Start 03/03/17 at 01:30 Losartan Potassium (Cozaar) 25 mg DAILY PO Last administered on 03/05/17 09:54 ; Admin Dose 25 MG; Start 03/04/17 at 09:00 Famotidine (Pepcid) 20 mg BID PO Last administered on 03/05/17 09:54; Admin Dose 20 MG; Start 03/04/17 at 21:00 Assessment/Plan Chief Complaint/Hosp Course 61 yo female with transient amnesia now back to baseline, mild leukocytosis. MRI showed signal void paraclinoid left ICA possible 6 mm aneurysm suggested further imaging. Of note she has no family history of aneurysm or reported ruptured aneurysm. CTA showed 7 mm sacular aneurysm left paraclinoid ICA proximal to origin of left ophthalmic a. projects inferior medially and posteriorly, A 3 mm inferomedially projecting aneurysm arising from the distal cavernous right internal carotid artery is also suggested. Venous sinuses: Patent. Recommendations: unclear episode of transient amnesia, possibly underlying cognitive issues may be followed up as outpatient for further cognitive testing no clear indication for aspirin, will discontinue, recommend maintain normotensive blood pressures cognitive issues unrelated to aneurysm, will request neurosurgery consultation so that she may follow up with neurosurgery outpatient as well to further evaluate and obtain serial imaging in the future for potential intervention at this time she is asymptomatic Problems: DONTE LYNCH MD Mar 05, 2017 11:33
--- NOTE | 2017-03-05 14:30 | PN ---
Date/Time of Note Date/Time of Note DATE: 03/05/17 TIME: 14:26 Assessment/Plan VTE Prophylaxis VTE Prophylaxis Intervention: LMWH Lines/Catheters IV [facility] Type (from [email or web address] Saline Lock Urinary Cath still in place: No Assessment/Plan Chief Complaint/Hosp Course 1. Transient amnesia. Etiology unclear. Brain CT scan showing advanced atrophy for the patient's provided age with no evidence of acute intracranial abnormality. Brain MRI showing no evidence of acute intracranial pathology but approximately 6 mm signal void adjacent to the paraclinoid left ICA. 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 2. Essential hypertension. Continue antihypertensives. 3. Leukocytosis. Probably reactive. Pancultures negative. The patient remains afebrile. 4. Prediabetes. Hemoglobin A1c 6.1. Low sugar diet advised. 5. Fluids, electrolytes, and nutrition. Low-cholesterol diet. 6. DVT prophylaxis with subcutaneous Lovenox. 7. Gastrointestinal prophylaxis. Histamine 2 receptor blockers. 8. Plan. Continue current management. Neurosurgery consult called as per the request of neurology. Await neurosurgery consultation. Case discussed with Dr. Newell. Problems: Subjective 24 Hr Interval Summary Free Text/Dictation The patient denies any complaints. Asking to go home. Exam/Review of Systems Vital Signs Vitals Vital Signs Date Time Temp Pulse Resp B/P Pulse Ox O2 Delivery O2 Flow Rate FiO2 03/05/17 12:18 61 03/05/17 11:41 97.5 17 109/56 100 03/03/17 01:03 Room Air Intake and Output 03/04/17 03/04/17 03/05/17 14:59 22:59 06:59 Intake Total 1200 ml 900 ml Balance 1200 ml 900 ml Exam General: Adequately build 61 year-old female lying in bed in no apparent distress. HEENT: Normocephalic, atraumatic. Eyes: Anicteric sclerae, conjunctivae clear. ENT: Nasal septum midline, oral mucosa moist. Neck supple, no JVD noticed. Respiratory: Bilaterally clear breath sounds. No use of accessory muscles of respiration. No adventitious breath sounds. Cardiovascular: S1, S2 heard. No murmurs or gallops. Abdomen: Soft, nontender, and nondistended. Bowel sounds positive in all 4 quadrants. Genitourinary: Deferred. Extremities: No cyanosis, no clubbing, no edema. Peripheral pulses palpable. Neurologic: Cranial nerves II through XII grossly intact. The patient is awake, alert, and oriented. Skin: Normal skin turgor. No skin rashes. Results Result Diagram: 03/04/1742 03/04/17 0711 Medications Medications Current Medications Atorvastatin Calcium (Lipitor) 40 mg HS PO Last administered on 03/05/17 01:46 ; Admin Dose 40 MG; Start 03/03/17 at 21:00 Ondansetron HCl (Zofran Inj) 4 mg Q6H PRN IV NAUSEA AND/OR VOMITING; Start at 01:30 Enoxaparin Sodium (Lovenox) 40 mg DAILY SC Last administered on 03/05/17 09:55 ; Admin Dose 40 MG; Start 03/03/17 at 01:30 Losartan Potassium (Cozaar) 25 mg DAILY PO Last administered on 03/05/17 09:54 ; Admin Dose 25 MG; Start 03/04/17 at 09:00 Famotidine (Pepcid) 20 mg BID PO Last administered on 03/05/17 09:54; Admin Dose 20 MG; Start 03/04/17 at 21:00 PATRICK WILHELM NP Mar 05, 2017 14:30
[2017-03-06] VITALS (7 sets, daily range): BP systolic 96–113; BP diastolic 53–65; PULSE 51–73; RESP 18
[2017-03-06] MEDS: FAMOTIDINE 20 MG TAB PO SCH (09:54)
[2017-03-06] MEDS: LOSARTAN 25 MG TAB PO SCH (09:54)
--- NOTE | 2017-03-06 11:34 | PDOCDIS ---
Discharge Instructions DIAGNOSIS Discharge Diagnosis Transient amnesia. 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 CONDITION Patient Condition: Stable HOME CARE INSTRUCTIONS: Diet Instructions: Low Fat /Cholesterol FOLLOW UP/APPOINTMENTS Follow-up Plan Malvin Sanchez MD Specialty Neurosurgery Office Address [address] [facility] [address] [place] [id number] Office OTHER ORDERS: Other Orders: 1. Resume home medications. 2. Resume activities as tolerated. 3. Follow-up with outpatient neurosurgery [Dr. Sanchez] in 1-2 weeks. Please call for appointment. 4. Please call 911 or go to the nearest emergency room if you have sudden onset of speech disturbances, focal deficits, or any other unusual signs/ symptoms. PATRICK WILHELM NP Mar 06, 2017 11:34
--- NOTE | 2017-03-06 15:01 | DS ---
Date/Time of Note Date/Time of Note DATE: 03/06/17 TIME: 14:57 Discharge Summary Admission/Discharge Info Admit Date/Time Mar 02, 2017 at 23:40 Discharge Date/Time Mar 06, 2017 at 12:45 Discharge Diagnosis 1. Transient amnesia of unclear etiology unclear. 2. 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 Outpatient follow-up with neurosurgery. 3. Essential hypertension. 4. Prediabetes. Patient Condition: Stable Consults 1. Zaira Bishop MD, Neurology. 2. Malvin Sanchez MD, Neurosurgery. Procedures Head CTA IMPRESSION: 1. There is a 7 mm saccular aneurysm arising from the left paraclinoid internal carotid artery, appearing to arise just proximal to the origin of the left ophthalmic artery. The aneurysm projects inferiorly, medially, and posteriorly. Of note, there is thinning and possible mild dehiscence of the posterior superior wall of the left sphenoid sinus, adjacent to the aneurysm. Recommend intrerventional neuroradiology/vascular neurosurgery consultation. 2. Probable 3 mm saccular aneurysm arising from the distal cavernous right internal carotid artery. 3. No significant cerebral arterial stenosis. Brain MRI IMPRESSION: 1. No evidence of acute intracranial pathology. 2. Mild volume loss, with minimal nonspecific white matter changes possibly reflecting chronic small vessel ischemic changes. 3. Approximately 6 mm signal void adjacent to the paraclinoid left ICA. Aneurysm is not excluded. Further evaluation with MRA or CTA of the brain is recommended. Brain CT IMPRESSION: Advanced atrophy for the patient's provided age with no evidence of acute intracranial abnormality or findings to explain the patient's provided history. Hx of Present Illness This is a 61-year-old female with a history of hypertension and dyslipidemia who presented to the emergency department for evaluation of memory loss. Patient stated that 2 days ago, she went to a movie with her mom where she ate popcorn. She said that popcorn made her bloated and she had a generalized feeling of unwell. 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 Later on in the afternoon she ate some cherries and that this also caused her some discomfort. Shortly after she vomited and after that patient does not remember what happened until she found herself in the ER. She denied similar symptoms in the past. She also denied any focal neurological deficits, facial droop blurry vision or seizure-like activity. 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 Patient still does not remember how she got to the hospital but other than that she remembers everything and does not have any other memory deficits. Patient denied recent head trauma. She also denied alcohol or illicit drug use. . Hospital Course The patient was admitted to inpatient telemetry floor. A neurology consult was called. The patient underwent a brain CT scan that showed advanced atrophy for the patient's provided age with no evidence of acute intracranial abnormality. The patient subsequently underwent a brain MRI that showed no evidence of acute intracranial pathology but approximately 6 mm signal void adjacent to the paraclinoid left ICA. The patient underwent a CT angiogram of the brain that showed a 7 mm saccular aneurysm arising from the left paraclinoid internal carotid artery. Consequently, neurosurgery was consulted as per the recommendations of neurology. Neurosurgery evaluated the patient and advised for outpatient neurosurgery follow-up for further management of this. The patient has underlying essential hypertension. The patient was maintained on antihypertensives for the same. The patient's blood pressure was well- controlled throughout the patient's hospital course. The patient has underlying dyslipidemia. She was maintained on statins. The patient's fasting lipid panel was satisfactory. The patient has underlying prediabetes with a hemoglobin A1c of 6.1. The patient's blood glucose remained stable. The reason for the patient's transient episode of amnesia remained unclear. Although it is possible that the patient had possible food poisoning from the popcorn that caused transient episode of acute viral gastroenteritis and significant dehydration that caused the patient's symptomatology. The patient had a stable hospital course. The patient was cleared by consultants to be discharged home. The patient denied any complaints at the time of discharge. Discharge Instructions 1. Resume home medications. 2. Resume activities as tolerated. 3. Follow-up with outpatient neurosurgery [Dr. Sanchez] in 1-2 weeks. Please call for appointment. 4. Please call 911 or go to the nearest emergency room if you have sudden onset of speech disturbances, focal deficits, or any other unusual signs/ symptoms. The patient verbalized understanding of her discharge instructions. At this time I would like to thank all the consultants for seeing the patient and providing clinical recommendations. Case discussed with Dr. Newell. Home Meds Reported Medications Famotidine* (Famotidine*) 10 Mg Tablet, 10 MG PO DAILY, #30 TAB 05/08/16 Atorvastatin* (Atorvastatin*) 40 Mg Tablet, 10 MG PO QHS, #30 TAB 05/08/16 Olmesartan Medoxomil (Benicar) 20 Mg Tablet, 20 MG PO DAILY, #30 TAB 05/08/16 Follow-up Plan Follow-up with outpatient neurosurgery. Follow-up with primary care physician in 1-2 weeks. Primary Care Provider Care Physician No Primary Time spent on discharge: > 30 minutes PATRICK WILHELM NP Mar 06, 2017 15:01 PATRICK WILHELM NP Mar 06, 2017 15:01
== END 2017-03-06 12:45 | disposition home or self-care (01) | DRG 948 ==
LOC: E/R 21:41 → MS4 23:40
PROVIDERS: ADMIT Internal Medicine; ATTEND Internal Medicine
DX: R41.3 Other amnesia (principal); I67.1 Cerebral aneurysm, nonruptured; I10 Essential (primary) hypertension; D72.829 Elevated white blood cell count, unspecified; E78.5 Hyperlipidemia, unspecified; R73.03 Prediabetes
CPT/HCPCS: 36415; 70450; 70496; 70551; 71010; 80048; 80053; 80061; 80307; 81001; 82607; 83036; 83735; 84100; 84443; 84484; 85025; 85610; 85730; 87040; 87086; 93005; 93306; 96374; J0696; J1650; J2543; J7030; J7040; Q9967